=== PATIENT | female | born 1980 | race Caucasian/White ===

== ENCOUNTER → 2025-04-12 15:10 | Outpatient (REF) | payer BC, SELFPAY | LOC: HWWDC 15:10 | PROVIDERS: ATTENDING PHYSICIAN Nurse Practitioner Family; REFERRING PHYSICIAN Obstetrics & Gynecology | DX: Z12.31 Encounter for screening mammogram for malignant neoplasm of breast (principal) | CPT/HCPCS: 77063; 77067 ==